=== PATIENT | female | born 1990 | race Two or more races ===

== ENCOUNTER 2016-12-23 17:42 | Emergency (ER) | payer MEDICAID ==
[~2016-12-23] VITALS: Ht 170.2 cm; Wt 72.6 kg
[2016-12-23] MEDS ORDERED: methylPREDNISolone SOD SUCC 125 MG/2 ML VL ONE (17:54)
[2016-12-23] MEDS ORDERED: IPRATROPIUM BROM 0.5 MG/2.5ML INH SOL NEB ONE (18:00)
[2016-12-23] MEDS ORDERED: ALBUTEROL SULF 2.5 MG/0.5ML(0.5%) NEB SOLN NEB ONE (18:00)
[2016-12-23] MEDS ORDERED: methylPREDNISolone SOD SUCC 125 MG/2 ML VL IV ONE (18:15)
[2016-12-23 19:19] LABS: Basophils # (auto) 0 uL; Basophils % (auto) 0.3 % (0.0-2.0); Eosinophils # (auto) 0.1 uL; Eosinophils % (auto) 1.1 % (0.0-7.0); Hematocrit 41.8 % (36.0-46.0); Hemoglobin 14.5 g/dL (12.2-16.2); Lymphocytes # (auto) 2.6 uL; Lymphocytes % (auto) 31.7 % (10.0-50.0); Mean Corpuscular Hemoglobin 31.4 pg (28.0-32.0); Mean Corpuscular Hgb Conc. 34.6 g/dL (32.0-36.0); Mean Corpuscular Volume 90.7 fL (80.0-100.0); Mean Platelet Volume 7.3 fL (6.9-10.8); Monocytes # (auto) 0.4 uL; Monocytes % (auto) 4.5 % (0.0-12.0); Neutrophils # (auto) 5.2 uL; Neutrophils % (auto) 62.4 % (37.0-80.0); Nucleated Red Blood Cells % 0.1 %; Platelet Count (auto) 266 10^3/uL (140-450); Red Cell Distribution Width 13.7 % (11.8-14.3); White Blood Cell 8.3 10^3/uL (4.4-10.8)
[2016-12-23 19:22] LABS: Urine Bilirubin Negative (Negative); Urine Blood Negative /uL (Negative); Urine Color Yellow (Yellow); Urine Glucose Normal (Normal); Urine Ketone Negative (Negative); Urine Nitrite Negative (Negative); Urine RBC 1 /hpf (0 - 4); Urine Squamous Epithelial Cell FEW /hpf (<5); Urine Urobilinogen Normal (Negative); Urine pH 7.5 (5.0-8.0)
[2016-12-23 19:29] LABS: Albumin 3.8 g/dL (3.4-5.0); BUN/Creatinine Ratio 11.5; Calcium 7.9 mg/dL (8.5-10.1)
[2016-12-23 19:35] LABS: Bilirubin, Total 0.4 mg/dL (0.2-1.0); Total Protein 7.5 g/dL (6.4-8.2)
[2016-12-23] MEDS ORDERED: POTASSIUM CHL 20 Meq TABLET PO ONE (22:30)
[2016-12-23 23:10] VITALS: BP 114/66
== END 2016-12-23 23:41 | disposition home or self-care (01) ==
LOC: EDBD 17:42 → ER 17:49
DX: J45.909 Unspecified asthma, uncomplicated (principal); Z90.89 Acquired absence of other organs
CPT/HCPCS: 36415; 71010; 80053; 81001; 84702; 85025; 94640; 96374; 99285; J2930

== ENCOUNTER 2017-11-12 02:28 | Emergency (ER) | payer MEDICAID ==
[~2017-11-12] VITALS: Ht 167.6 cm; Wt 77.1 kg
[2017-11-12 02:30] VITALS: BP 120/75
[2017-11-12] MEDS ORDERED: methylPREDNISolone SOD SUCC 125 MG/2 ML VL ONE (02:33)
[2017-11-12] MEDS ORDERED: ALBUTEROL SULF 2.5 MG/0.5ML(0.5%) NEB SOLN ONE (02:39)
[2017-11-12] MEDS ORDERED: IPRATROPIUM BROM 0.5 MG/2.5ML INH SOL ONE (02:39)
[2017-11-12] MEDS ORDERED: methylPREDNISolone SOD SUCC 125 MG/2 ML VL IV ONE (02:45)
[2017-11-12] MEDS ORDERED: ALBUTEROL SULF 2.5 MG/0.5ML(0.5%) NEB SOLN NEB ONE (02:45)
[2017-11-12] MEDS ORDERED: IPRATROPIUM BROM 0.5 MG/2.5ML INH SOL NEB ONE (02:45)
== END 2017-11-12 05:42 | disposition home or self-care (01) ==
LOC: ER 02:30
DX: J45.909 Unspecified asthma, uncomplicated (principal)
CPT/HCPCS: 94640; 94761; 96374; 99284; J2930

== ENCOUNTER 2017-12-16 12:15 | Emergency (ER) | payer MEDICAID, OTHER ==
[~2017-12-16] VITALS: Ht 170.2 cm; Wt 79.4 kg
[2017-12-16 12:25] VITALS: BP 125/92
[2017-12-16] MEDS ORDERED: TETRACAINE HCL 0.5% OPTH(EYE) SOLN 4ML EACHEYE ONE (12:45)
== END 2017-12-16 13:44 | disposition home or self-care (01) ==
LOC: ER 12:17
DX: T15.11XA Foreign body in conjunctival sac, right eye, initial encounter (principal); J45.909 Unspecified asthma, uncomplicated; Z90.49 Acquired absence of other specified parts of digestive tract; X58.XXXA Exposure to other specified factors, initial encounter; Y93.89 Activity, other specified; Y99.8 Other external cause status; Y92.812 Truck as the place of occurrence of the external cause
CPT/HCPCS: 65205